=== PATIENT | female | born 1955 | race African-American/Black ===

== ENCOUNTER 2016-11-02 17:30 | Inpatient (IN) | payer MEDICARE ==
[~2016-11-02] VITALS: Ht 157.5 cm; Wt 61.0 kg
[2016-11-02] MEDS ORDERED: CALC1TAB PO (18:25)
[2016-11-02] MEDS ORDERED: EZET10TA3 PO (18:25)
[2016-11-02] MEDS ORDERED: MAGN71.52 PO (18:25)
[2016-11-02] MEDS ORDERED: LEVO500T38 PO (18:25)
[2016-11-02] MEDS ORDERED: LEVE500T56 PO (18:25)
[2016-11-02] MEDS ORDERED: SPIR100T PO (18:25)
[2016-11-02] MEDS ORDERED: RIFA550T PO (18:25)
[2016-11-02] MEDS ORDERED: DICL100G7 TP (18:25)
[2016-11-02] MEDS ORDERED: AMOX1TAB58 PO (18:25)
[2016-11-02] MEDS ORDERED: OMEP20TA63 PO (18:25)
[2016-11-02] MEDS ORDERED: OMEG1CAP38 PO (18:25)
[2016-11-02] MEDS ORDERED: MECL25TA3 PO (18:25)
[2016-11-02] MEDS ORDERED: LACT20SO PO (18:25)
[2016-11-02 18:45] VITALS: BP 115/54
[2016-11-02 18:53] VITALS: BP 115/54
[2016-11-02] MEDS ORDERED: FUROSEMIDE 40 MG/4 ML VIAL IVP ONE (19:30)
[2016-11-02 20:22] LABS: BASO % 1 % (0-3); EOS % 2 % (0-3); HEMOGLOBIN 10.4 g/dL (12.0-15.5); LYMPH # 1.4 x10^3/uL (1.0-4.8); LYMPH % 25 % (24-48); MEAN CORPUSCULAR HEMOGLOBIN 31 pg (25-35); MEAN CORPUSCULAR HGB CONC 33 g/dL (31-37); MEAN CORPUSCULAR VOLUME 94 fL (79-100); MONO % 16 % (0-9); NEUT % 57 % (31-73); PLATELET COUNT 71 x10^3/uL (140-400); RED CELL DISTRIBUTION WIDTH 18.3 % (11.5-14.5); WHITE BLOOD COUNT 5.7 x10^3/uL (4.0-11.0)
[2016-11-02 20:28] LABS: INR 2.4 (0.8-1.1)
[2016-11-02 20:30] LABS: ALBUMIN 1.2 g/dL (3.4-5.0); ALBUMIN/GLOBULIN RATIO 0.2 (1.0-1.7); CREATININE 1.2 mg/dL (0.6-1.0); GFR 55.1; MAGNESIUM 1.6 mg/dL (1.8-2.4); POTASSIUM 4.5 mmol/L (3.5-5.1); TOTAL BILIRUBIN 4.1 mg/dL (0.2-1.0); TOTAL PROTEIN 7.2 g/dL (6.4-8.2)
--- NOTE | 2016-11-02 21:38 | EKG ---
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
[2016-11-02] MEDS: LACTULOSE 20 GM/30 ML SOLUTION. PO SCH (21:48)
[2016-11-02] MEDS: RIFAXIMIN 550 MG TABLET PO SCH (21:49)
[2016-11-02] MEDS: LEVETIRACETAM 500 MG TABLET PO SCH (21:49)
[2016-11-02 22:19] LABS: BILIRUBIN,URINE MODERATE (NEG); GLUCOSE,URINE NEGATIVE (NEG); NITRITE,URINE NEGATIVE (NEG); PH,URINE 6.5; PROTEIN,URINE NEGATIVE (NEG-TRACE)
[2016-11-02 22:41] LABS: BACTERIA,URINE 0 /HPF (0-FEW); RBC,URINE 20-40 /HPF (0-2); SQUAMOUS EPITHELIAL CELL,UR MOD /LPF
[2016-11-02 23:00] VITALS: BP 121/71
[2016-11-03] VITALS (7 sets, daily range): BP systolic 86–112; BP diastolic 46–57
[2016-11-03 05:45] LABS: BASO % 1 % (0-3); EOS % 2 % (0-3); HEMATOCRIT 30.4 % (36.0-47.0); LYMPH # 1.5 x10^3/uL (1.0-4.8); LYMPH % 32 % (24-48); MEAN CORPUSCULAR HEMOGLOBIN 31 pg (25-35); MEAN CORPUSCULAR HGB CONC 33 g/dL (31-37); MEAN CORPUSCULAR VOLUME 94 fL (79-100); MONO % 15 % (0-9); NEUT % 51 % (31-73); PLATELET COUNT 65 x10^3/uL (140-400); RED BLOOD COUNT 3.22 x10^6/uL (3.50-5.40); RED CELL DISTRIBUTION WIDTH 17.4 % (11.5-14.5); WHITE BLOOD COUNT 4.6 x10^3/uL (4.0-11.0)
[2016-11-03 06:04] LABS: POTASSIUM 3.9 mmol/L (3.5-5.1)
--- NOTE | 2016-11-03 07:50 | RAD ---
Bilateral lower extremity venous ultrasound, 11/02/2016: History: Bilateral leg and feet swelling Duplex evaluation of the deep veins in the lower extremities was performed including grayscale, color-flow and spectral Doppler analysis. The femoral and popliteal veins demonstrate normal compressibility and normal responses to distal augmentation maneuvers. Color imaging of those vessels shows no evidence of intraluminal clot. The visualized deep veins in both calves are patent. There is considerable subcutaneous edema in both lower legs. IMPRESSION: There is no sonographic evidence of deep vein thrombosis in either lower extremity.
[2016-11-03] MEDS: LEVETIRACETAM 500 MG TABLET PO SCH ×2 (08:22→20:04)
[2016-11-03] MEDS: RIFAXIMIN 550 MG TABLET PO SCH ×2 (08:22→20:04)
[2016-11-03] MEDS: SPIRONOLACTONE 25 MG TABLET PO SCH (08:22)
[2016-11-03] MEDS: PANTOPRAZOLE 40 MG TABLET. PO SCH (08:22)
[2016-11-03] MEDS: LACTULOSE 20 GM/30 ML SOLUTION. PO SCH ×3 (08:22→20:04)
[2016-11-03] MEDS: EZETIMIBE 10 MG TABLET PO SCH (08:23)
[2016-11-03] MEDS: FUROSEMIDE 20 MG/2 ML VIAL IVP SCH ×2 (08:23→14:13)
--- NOTE | 2016-11-03 09:52 | RAD ---
Portable chest, 11/02/2016: History: Swollen feet, congestive heart failure No previous chest radiographs are available at this time for comparison purposes. The heart is at the upper limits of normal in size. There is a small left suprahilar opacity suggesting a mass versus focal infiltrate. There is mild streaky infiltrate in the left base partially obscuring the hemidiaphragm. The right lung is clear. No definite pleural fluid is seen. A bowel loop extends up beneath the hemidiaphragm in the right upper quadrant of the abdomen. IMPRESSION: 1. Left suprahilar mass versus focal pneumonitis. CT chest imaging is suggested for further evaluation. 2. Mild left basilar infiltrate suggesting pneumonia.
--- NOTE | 2016-11-03 10:01 | PDOC ---
Provider Note Provider Note Pt seen.H&P dictated. #[id number] AGUILA ALVA MD Nov 03, 2016 10:01
--- NOTE | 2016-11-03 10:18 | PDOC2 ---
GI CONSULT Reason For Consult: Cirrhosis HPI: HPI: 61 y/o AA female who has chief complaint of swelling in her feet. PMH is significant for alcoholic cirrhosis which is why GI was asked to see. She apparently stopped drinking for awhile but has resumed; she has she has a couple cans of beer a few days a week. At home, she takes Xifaxan, lactulose, and Aldactone. It's unclear if she's had previous paracentesis but was apparently on the transplant list for awhile. She describes some abdominal bloating which has improved. H/o GERD controlled w/ Prilosec at home. Lactulose causes loose stools. Denies abd pain and bleeding. Has lost some weight (about 15 pounds) recently w/ some decreased appetite. Recalls previous EGD and colonoscopy about 5 years ago which she says were normal except for reflux. Abd US is pending from yesterday. Labs significant for INR 2.4, Hgb 10 , plt 65, bili 4.1, AST 57, ALT 28, Alk Phos 125. Note mass vs pneumonitis or possible pneumonia on CXR. Has had recent "cold." Lasix added here. PMH: PMH: cirrhosis (alcohol), CVA, seizures, HTN, lung cancer, GERD, hysterectomy, arthritis, depression Social History: Smoke: 1 pack per day ALCOHOL: heavy Drugs: None ROS: GEN: Denies fevers, chills, sweats HEENT: Denies blurred vision, sore throat CV: Denies chest pain RESP: Denies shortness of air, cough GI: Per HPI : Denies hematuria, dysuria ENDO: weight loss NEURO: Denies confusion, dizziness MSK: feet swelling and pain SKIN: Denies jaundice, pruritus VItals: Vitals: Vital Signs Date Time Temp Pulse Resp B/P Pulse Ox O2 Delivery O2 Flow Rate FiO2 11/03/16 08:00 Room Air 11/03/16 07:00 90/46 11/03/16 07:00 97.7 67 19 99 97.7 Labs: Labs: Laboratory Tests Test 11/02/16 20:05 11/02/16 22:00 11/03/16 04:40 White Blood Count 5.7x10^3/uL (4.0-11.0) 4.6x10^3/uL (4.0-11.0) Red Blood Count 3.40x10^6/uL (3.50-5.40) 3.22x10^6/uL (3.50-5.40) Hemoglobin 10.4g/dL (12.0-15.5) 10.0g/dL (12.0-15.5) Hematocrit 32.0% (36.0-47.0) 30.4% (36.0-47.0) Mean Corpuscular Volume 94fL (79-100) 94fL (79-100) Mean Corpuscular Hemoglobin 31pg (25-35) 31pg (25-35) Mean Corpuscular Hemoglobin Concent 33g/dL (31-37) 33g/dL (31-37) Red Cell Distribution Width 18.3% (11.5-14.5) 17.4% (11.5-14.5) Platelet Count 71x10^3/uL (140-400) 65x10^3/uL (140-400) Neutrophils (%) (Auto) 57% (31-73) 51% (31-73) Lymphocytes (%) (Auto) 25% (24-48) 32% (24-48) Monocytes (%) (Auto) 16% (0-9) 15% (0-9) Eosinophils (%) (Auto) 2% (0-3) 2% (0-3) Basophils (%) (Auto) 1% (0-3) 1% (0-3) Neutrophils # (Auto) 3.2x10^3uL (1.8-7.7) 2.3x10^3uL (1.8-7.7) Lymphocytes # (Auto) 1.4x10^3/uL (1.0-4.8) 1.5x10^3/uL (1.0-4.8) Monocytes # (Auto) 0.9x10^3/uL (0.0-1.1) 0.7x10^3/uL (0.0-1.1) Eosinophils # (Auto) 0.1x10^3/uL (0.0-0.7) 0.1x10^3/uL (0.0-0.7) Basophils # (Auto) 0.0x10^3/uL (0.0-0.2) 0.0x10^3/uL (0.0-0.2) Prothrombin Time 25.0SEC (11.7-14.0) Prothromb Time International Ratio 2.4 (0.8-1.1) Sodium Level 137mmol/L (136-145) 136mmol/L (136-145) Potassium Level 4.5mmol/L (3.5-5.1) 3.9mmol/L (3.5-5.1) Chloride Level 108mmol/L (98-107) 106mmol/L (98-107) Carbon Dioxide Level 26mmol/L (21-32) 26mmol/L (21-32) Anion Gap 3 (6-14) 4 (6-14) Blood Urea Nitrogen 12mg/dL (7-20) 11mg/dL (7-20) Creatinine 1.2mg/dL (0.6-1.0) 1.0mg/dL (0.6-1.0) Estimated GFR (Cockcroft-Gault) 55.1 68.0 BUN/Creatinine Ratio 10 (6-20) Glucose Level 103mg/dL (70-99) 73mg/dL (70-99) Calcium Level 8.0mg/dL (8.5-10.1) 8.0mg/dL (8.5-10.1) Magnesium Level 1.6mg/dL (1.8-2.4) Total Bilirubin 4.1mg/dL (0.2-1.0) Aspartate Amino Transf (AST/SGOT) 57U/L (15-37) Alanine Aminotransferase (ALT/SGPT) 28U/L (14-59) Alkaline Phosphatase 125U/L (46-116) Ammonia 30mcmol/L (11-34) Total Protein 7.2g/dL (6.4-8.2) Albumin 1.2g/dL (3.4-5.0) Albumin/Globulin Ratio 0.2 (1.0-1.7) Thyroid Stimulating Hormone (TSH) 5.165uIU/mL (0.358-3.74) Urine Collection Type Unknown Urine Color [place] Urine Clarity Clear Urine pH 6.5 Urine Specific [place] 1.025 Urine Protein Negativemg/dL (NEG-TRACE) Urine Glucose (UA) Negativemg/dL (NEG) Urine Ketones (Stick) Negativemg/dL (NEG) Urine Blood Small (NEG) Urine Nitrite Negative (NEG) Urine Bilirubin Moderate (NEG) Urine Urobilinogen Dipstick 2.0mg/dL (0.2 mg/dL) Urine Leukocyte Esterase Trace (NEG) Urine RBC 20-40/HPF (0-2) Urine WBC 1-4/HPF (0-4) Urine Squamous Epithelial Cells Mod/LPF Urine Bacteria 0/HPF (0-FEW) Urine Hyaline Casts Moderate/HPF Urine Mucus Mod/LPF Allergies: Coded Allergies: adhesive tape (Verified Adverse Reaction, Intermediate, 11/02/16) Medications: Current Medications Medications (Trade) Dose Ordered Sig/Kassi Route PRN Reason Start Time Stop Time Status Last Admin Dose Admin EZETIMIBE (Zetia) 10 mg DAILY PO 11/03/16 09:00 11/03/16 08:23 Levetiracetam (Keppra) 500 mg BID PO 11/02/16 21:00 11/03/16 08:22 Rifaximin (Xifaxan) 550 mg BID PO 11/02/16 21:00 11/03/16 08:22 Lactulose 20 gm TID PO 11/02/16 21:00 11/03/16 08:22 Pantoprazole Sodium (Protonix) 40 mg DAILYAC PO 11/03/16 07:30 11/03/16 08:22 Spironolactone (Aldactone) 100 mg DAILY PO 11/03/16 09:00 11/03/16 08:22 Furosemide (Lasix) 20 mg BID92 IVP 11/03/16 09:00 11/03/16 08:23 Furosemide (Lasix) 40 mg 1X ONCE IVP 11/02/16 19:30 11/02/16 19:32 DC 11/02/16 21:50 Imaging: Imaging: CXR 11/02/16 IMPRESSION: 1. Left suprahilar mass versus focal pneumonitis. CT chest imaging is suggested for further evaluation. 2. Mild left basilar infiltrate suggesting pneumonia. LE Ultrasound 11/02/16 IMPRESSION: There is no sonographic evidence of deep vein thrombosis in either lower extremity. PE: GEN: NAD HEENT: Atraumatic, PERRL LUNGS: decreased bilaterally HEART: RRR ABD: NABS, S/NT, perhaps mildly distended EXTREMITY: BLE edema SKIN: No rashes, no jaundice NEURO/PSYCH: A & O 3 A/P: A/P: Alcoholic cirrhosis -history of, has started drinking again -on Aldactone, Xifaxan, lactulose at home - Lasix added here BLE edema Abnormal CXR -as above GERD -controlled w/ PPI, recalls previous EGD Weight loss, anorexia CRC screen -reports previously normal colonoscopy -- Continue current, await US results. DIANA SANCHEZ Nov 03, 2016 10:18
[2016-11-03] MEDS ORDERED: MAGNESIUM SULFATE 2GM 50 ML IV ONE (10:30)
--- NOTE | 2016-11-03 10:35 | RAD ---
Abdominal ultrasound, 11/02/2016: History: Ascites, liver failure There is a moderate volume of ascites. The hepatic margins are irregular compatible with cirrhosis. No hepatic mass is seen. There is hepatofugal blood flow in the portal vein. There is considerable thickening of the gallbladder wall. The gallbladder contains echogenic structures with posterior acoustic shadowing compatible with cholelithiasis. The visualized portions of the pancreas are unremarkable. The spleen measures 11 cm in length. No renal abnormality is detected. There is aortic atherosclerosis. The distal abdominal aorta was obscured by overlying bowel. The visualized portions of the inferior vena cava are unremarkable. IMPRESSION: 1. Hepatic cirrhosis with hepatofugal flow in the portal vein compatible with portal hypertension. 2. Moderate volume of ascites. 3. Cholelithiasis with considerable gallbladder wall thickening. The gallbladder wall thickening may be due to the liver disease or cholecystitis.
--- NOTE | 2016-11-03 12:46 | PDOC ---
Provider Note Provider Note dictated BRIELLE MABRY MD Nov 03, 2016 12:46
--- NOTE | 2016-11-03 13:46 | RAD ---
Indication abnormal plain film examination of the chest. Suspect mass left lung. Noncontrast images through the chest were obtained. No prior CT imaging of the chest is available. Note is made of a plain film examination and the accompanying report of the chest one day earlier. Imaging through the upper abdomen demonstrate some ascites. The liver is slightly shrunken and has a slightly irregular border contour. The spleen is normal in size. The appearance of the liver is suggestive of cirrhosis. Clinical correlation advised. Cholelithiasis is noted An acute finding in the upper abdomen is not seen. There is a soft tissue parenchymal mass in the left upper lobe measuring approximately 3 cm in greatest dimension. It abuts the hilum and left pulmonary artery. Primary malignancy is the leading consideration. Pneumonia is felt unlikely. Scarring would be a remote possibility. Biopsy or PET scan imaging should be considered. There is likely mild left hilar adenopathy. There is some slight volume loss in the left lower lobe compatible with atelectasis or pneumonia. The right lung is clear. There is a minute amount of left pleural fluid. IMPRESSION: 3 cm soft tissue mass in the left upper lobe. Primary malignancy is leading consideration. There is likely mild left hilar adenopathy. Liver appearance most consistent with a cirrhotic liver. Cholelithiasis. Abdominal ascites PQRS Compliance Statement: One or more of the following individualized dose reduction techniques were utilized for this examination: 1. Automated exposure control 2. Adjustment of the mA and/or kV according to patient size 3. Use of iterative reconstruction technique
--- NOTE | 2016-11-03 14:39 | HP ---
ADMIT DATE: 11/02/2016 LOCATION: 528. REASON FOR ADMISSION TO THE HOSPITAL: Cirrhosis of the liver secondary to alcoholic liver disease, decompensation. HISTORY OF PRESENT ILLNESS: The patient is a 61-year-old female patient, history of alcoholic liver disease, has been to , in the kidney transplant waiting list. She has history of alcohol problem and she also has been drinking over holidays and also smoking. She gained 17 pounds and swelling, 2+3+ edema lower extremities, abdominal distention, was admitted with anasarca from cirrhosis of the liver, was admitted for aggressive diuresis. PAST MEDICAL HISTORY: She has a history of COPD, lung cancer, radiation treatment, cirrhosis of the liver, had EGD, colonoscopy, paracentesis in the past, anxiety, depression. PAST SURGICAL HISTORY: As mentioned above, had EGD, colonoscopy, paracentesis, and she is on the transplant list. She also had radiation for lung cancer, being followed by Oncology. ALLERGIES: TAPE. MEDICATIONS: She is on Zetia 10 mg daily, lactulose 3 times daily, Keppra 500 mg twice a day for seizures, omeprazole 20 mg daily, Xifaxan 550 mg twice a day, spironolactone 100 mg daily. Taking vitamin D, magnesium, meclizine, fish oil. PERSONAL HISTORY: Smokes 1 pack. She is drinking lately more than usual. She stopped for 2 years, then it came back. She has drunk for 30 years. FAMILY HISTORY: Unremarkable. SOCIAL HISTORY: Lives with her . REVIEW OF SYSTEMS: CARDIAC: No chest pain. LUNGS: No cough. GASTROINTESTINAL: Some abdominal distention. EXTREMITIES: Swelling of lower extremities and weak. PHYSICAL EXAMINATION: VITAL SIGNS: At the time of admission show temperature 97, pulse 57, respirations 19, blood pressure 115/54, 100% on room air. HEENT: Head is atraumatic. Pupils, no jaundice. Oral cavity, teeth present. NECK: Supple. Thyroid not enlarged. JVD not elevated. CHEST: Symmetrical. CARDIOVASCULAR: S1, S2. LUNGS: Clear to auscultation. Few crackles. ABDOMEN: Distended with fluid, soft. No mass palpable. EXTERNAL GENITALIA: No Almanzar. RECTAL: Deferred. EXTREMITIES: 3+ edema, 2+ of the thighs, 3+ at the feet. SKIN: No skin breakdown. NEUROLOGIC: No asterixis. Moving upper and lower extremities, slightly weak. LABORATORY DATA: Shows a white count of 5.7, hemoglobin 10.4, platelets 71. Electrolytes show sodium 137, potassium 4.5, chloride 108, bicarb 26, BUN 12, creatinine 1.1, glucose 103, magnesium 1.6, bilirubin 4.1, AST 57, ALT 28. Ammonia 30. Albumin 1.2. TSH 5.1. INR was 2.4. Urine: WBC 1-4, negative for nitrites, negative for leukocyte esterase. Chest x-ray: Left suprahilar mass, has history lung cancer. Ultrasound of the lower extremities, no evidence of DVT. FINAL IMPRESSION: 1. Anasarca, acute on chronic liver failure. 2. Cirrhosis of the liver. 3. Alcoholic liver disease. 4. History of lung cancer. 5. Low albumin and low magnesium. 6. Relapse with smoking and drinking. PLAN: At this time, admit to hospital, aggressive diuresis. We will have GI consultation, also have pulmonary consult because of infiltrates in the lung and see how the patient improves. Prognosis is guarded. Again, stressed the importance of staying away from alcohol and smoking. AGUILA ALVA MD DR: MELLY/kar JOB#: [id number] / [id number]
[2016-11-04] VITALS (9 sets, daily range): BP systolic 88–100; BP diastolic 42–65
[2016-11-04 05:11] LABS: CALCIUM 8.1 mg/dL (8.5-10.1); CREATININE 1.1 mg/dL (0.6-1.0); GFR 60.9; MAGNESIUM 1.5 mg/dL (1.8-2.4); POTASSIUM 3.6 mmol/L (3.5-5.1)
[2016-11-04] MEDS: LEVETIRACETAM 500 MG TABLET PO SCH ×2 (08:39→20:42)
[2016-11-04] MEDS: EZETIMIBE 10 MG TABLET PO SCH (08:39)
[2016-11-04] MEDS: SPIRONOLACTONE 25 MG TABLET PO SCH (08:39)
[2016-11-04] MEDS: RIFAXIMIN 550 MG TABLET PO SCH ×2 (08:39→20:42)
[2016-11-04] MEDS: PANTOPRAZOLE 40 MG TABLET. PO SCH (08:39)
[2016-11-04] MEDS: LACTULOSE 20 GM/30 ML SOLUTION. PO SCH ×3 (08:39→20:42)
[2016-11-04] MEDS: FUROSEMIDE 20 MG/2 ML VIAL IVP SCH ×3 (08:40→14:18)
--- NOTE | 2016-11-04 09:04 | PDOC ---
DAVID WISDOM SOLID WASTE MANAGER 11/04/16 0904: IM PROGRESS NOTES- Subjective Subjective doing okay, pain in bilateral feet Objective Objective no distress Vitals Vital Signs Date Time Temp Pulse Resp B/P Pulse Ox O2 Delivery O2 Flow Rate FiO2 11/04/16 07:49 Room Air 11/04/16 04:00 94/42 11/04/16 03:00 98.2 69 18 91 98.2 Input & Output Intake and Output 11/04/16 07:00 Intake Total 1740 ml Output Total 1600 ml Balance 140 ml Intake Oral 1740 ml Output Urine Total 1600 ml # Bowel Movements 1 Physical Exam Physical Exam General appearance - alert, chronically ill appearing, and in no distress Mental Status - alert, oriented to person, place, and time, affect appropriate to mood Head - normal Chest - clear to auscultation, no wheezes, rales or rhonchi Heart - S1 and S2 normal Abdomen - soft, nontender, +ascites, BS+ Neurological - no acute focal neurological deficit noted Musculoskeletal - no muscular tenderness noted Extremities - no pedal edema Skin - warm and dry Labs Laboratory Tests Test 11/02/16 20:05 11/02/16 22:00 11/03/16 04:40 11/04/16 03:36 White Blood Count 5.7x10^3/uL (4.0-11.0) 4.6x10^3/uL (4.0-11.0) Red Blood Count 3.40x10^6/uL (3.50-5.40) 3.22x10^6/uL (3.50-5.40) Hemoglobin 10.4g/dL (12.0-15.5) 10.0g/dL (12.0-15.5) Hematocrit 32.0% (36.0-47.0) 30.4% (36.0-47.0) Mean Corpuscular Volume 94fL (79-100) 94fL (79-100) Mean Corpuscular Hemoglobin 31pg (25-35) 31pg (25-35) Mean Corpuscular Hemoglobin Concent 33g/dL (31-37) 33g/dL (31-37) Red Cell Distribution Width 18.3% (11.5-14.5) 17.4% (11.5-14.5) Platelet Count 71x10^3/uL (140-400) 65x10^3/uL (140-400) Neutrophils (%) (Auto) 57% (31-73) 51% (31-73) Lymphocytes (%) (Auto) 25% (24-48) 32% (24-48) Monocytes (%) (Auto) 16% (0-9) 15% (0-9) Eosinophils (%) (Auto) 2% (0-3) 2% (0-3) Basophils (%) (Auto) 1% (0-3) 1% (0-3) Neutrophils # (Auto) 3.2x10^3uL (1.8-7.7) 2.3x10^3uL (1.8-7.7) Lymphocytes # (Auto) 1.4x10^3/uL (1.0-4.8) 1.5x10^3/uL (1.0-4.8) Monocytes # (Auto) 0.9x10^3/uL (0.0-1.1) 0.7x10^3/uL (0.0-1.1) Eosinophils # (Auto) 0.1x10^3/uL (0.0-0.7) 0.1x10^3/uL (0.0-0.7) Basophils # (Auto) 0.0x10^3/uL (0.0-0.2) 0.0x10^3/uL (0.0-0.2) Prothrombin Time 25.0SEC (11.7-14.0) Prothromb Time International Ratio 2.4 (0.8-1.1) Sodium Level 137mmol/L (136-145) 136mmol/L (136-145) 138mmol/L (136-145) Potassium Level 4.5mmol/L (3.5-5.1) 3.9mmol/L (3.5-5.1) 3.6mmol/L (3.5-5.1) Chloride Level 108mmol/L (98-107) 106mmol/L (98-107) 106mmol/L (98-107) Carbon Dioxide Level 26mmol/L (21-32) 26mmol/L (21-32) 28mmol/L (21-32) Anion Gap 3 (6-14) 4 (6-14) 4 (6-14) Blood Urea Nitrogen 12mg/dL (7-20) 11mg/dL (7-20) 14mg/dL (7-20) Creatinine 1.2mg/dL (0.6-1.0) 1.0mg/dL (0.6-1.0) 1.1mg/dL (0.6-1.0) Estimated GFR (Cockcroft-Gault) 55.1 68.0 60.9 BUN/Creatinine Ratio 10 (6-20) Glucose Level 103mg/dL (70-99) 73mg/dL (70-99) 99mg/dL (70-99) Calcium Level 8.0mg/dL (8.5-10.1) 8.0mg/dL (8.5-10.1) 8.1mg/dL (8.5-10.1) Magnesium Level 1.6mg/dL (1.8-2.4) 1.5mg/dL (1.8-2.4) Total Bilirubin 4.1mg/dL (0.2-1.0) Aspartate Amino Transf (AST/SGOT) 57U/L (15-37) Alanine Aminotransferase (ALT/SGPT) 28U/L (14-59) Alkaline Phosphatase 125U/L (46-116) Ammonia 30mcmol/L (11-34) Total Protein 7.2g/dL (6.4-8.2) Albumin 1.2g/dL (3.4-5.0) Albumin/Globulin Ratio 0.2 (1.0-1.7) Thyroid Stimulating Hormone (TSH) 5.165uIU/mL (0.358-3.74) Urine Collection Type Unknown Urine Color [place] Urine Clarity Clear Urine pH 6.5 Urine Specific [place] 1.025 Urine Protein Negativemg/dL (NEG-TRACE) Urine Glucose (UA) Negativemg/dL (NEG) Urine Ketones (Stick) Negativemg/dL (NEG) Urine Blood Small (NEG) Urine Nitrite Negative (NEG) Urine Bilirubin Moderate (NEG) Urine Urobilinogen Dipstick 2.0mg/dL (0.2 mg/dL) Urine Leukocyte Esterase Trace (NEG) Urine RBC 20-40/HPF (0-2) Urine WBC 1-4/HPF (0-4) Urine Squamous Epithelial Cells Mod/LPF Urine Bacteria 0/HPF (0-FEW) Urine Hyaline Casts Moderate/HPF Urine Mucus Mod/LPF Laboratory Tests Test 11/04/16 03:36 Sodium Level 138mmol/L (136-145) Potassium Level 3.6mmol/L (3.5-5.1) Chloride Level 106mmol/L (98-107) Carbon Dioxide Level 28mmol/L (21-32) Anion Gap 4 (6-14) Blood Urea Nitrogen 14mg/dL (7-20) Creatinine 1.1mg/dL (0.6-1.0) Estimated GFR (Cockcroft-Gault) 60.9 Glucose Level 99mg/dL (70-99) Calcium Level 8.1mg/dL (8.5-10.1) Magnesium Level 1.5mg/dL (1.8-2.4) Meds Current Medications EZETIMIBE (Zetia) 10 mg DAILY PO Last administered on 11/04/16 08:39; Start at 09:00 Furosemide 20 mg 20 mg BID92 IVP Last administered on 11/04/16 08:40; Start at 09:00 Magnesium Sulfate/ Dextrose (Magnesium Sulfate PREMIX 2GM) 50 ml @ 25 mls/hr 1X ONCE IV Last administered on 11/03/16 10:59; Start 11/03/16 at 10:30; Stop 11/03/16 at 12:29; Status DC Spironolactone (Aldactone) 100 mg DAILY PO Last administered on 11/04/16 08:39 ; Start 11/03/16 at 09:00 Assessment Assessment FINAL IMPRESSION: 1. Anasarca, acute on chronic liver failure. 2. Cirrhosis of the liver. 3. Alcoholic liver disease. 4. History of lung cancer. 5. Low albumin and low magnesium. 6. Relapse with smoking and drinking. IMPRESSION: anasarca secondary to cirrhosis liver daily weight not accurate Lasix 20mg IV Bid 2day I/O edema improved cirrhosis liver secondary to ETOH INR 2.4 on admission Platelet Admit 71 11/04 65 hepatic cirrhosis +portal HTN abnormal CT chest 3cm soft tissue mass JIMMY with mild L hilar adenopathy, highly suspicious for malignancy pulmonary consulted cholecystitis gallstone +GB wall thickening, not acute. monitor for symptoms anemia CD Admit Hgb 10.4 11/04 10.0 CKD II Admit BUN 12 11/04 14 Cr 1.2 1.1 K 4.5 3.6 Mg 1.6 1.5 OTC mg replacement home meds start Mag Ox 400mg BID and recheck AM 11/05 DVT/GI prophylaxis tubigrip OOB chair/ambulate PPI Plan Plan For more details regarding further plans, please refer to the orders. LIBBY KINNEY MD 11/04/16 1058: IM PROGRESS NOTES- Assessment Assessment Hypomagnesemia- IV MAg 4 gm Hypokalemia replace. Give IV Lasix X1. Discharge tomorrow. still has edema of legs but improving. The patient was seen and examined by me. Chart reviewed and plan of care formulated. Discussed with, reviewed and agree with SQL SERVER DBA DEVELOPER's notes, plan of care and orders with modifications as necessary. For more details regarding further plans, please refer to the orders. DAVID WISDOM APRN Nov 04, 2016 09:04 LIBBY KINNEY MD Nov 04, 2016 10:58
--- NOTE | 2016-11-04 09:08 | CONS ---
DATE OF CONSULTATION: 11/03/2016 ATTENDING PHYSICIAN: Dr. Chin. REASON FOR CONSULTATION: Lung mass. HISTORY OF PRESENT ILLNESS: The patient is a 61-year-old female with history of alcoholic cirrhosis. She has a history of tobacco use for 25-30 years; however, she said she smoked minimally with 1 pack lasting a week, now down to 1-2 cigarettes a day. The patient was hospitalized because of significant lower extremity edema and anasarca. I have been asked to see her for further evaluation of abnormal chest x-ray. The patient's chest x-ray was reviewed dated today. She had a left suprahilar mass. The patient had some left basilar infiltrate as well. She was told that she had lung mass consistent with cancer about 6-8 months ago. However, she declined to have the biopsy and she received radiation treatment. I do not have any old x-ray available at this hospital for comparison. She states she was told that the tumor was stable. She has lost weight, but she is unable to know exact pounds. No cough, no hemoptysis. No chest pains. No nausea, vomiting. Consultation requested for further evaluation and management. PAST MEDICAL HISTORY: Alcoholic cirrhosis, history of CVA, seizures, hypertension, history of lung cancer, but not formally diagnosed, but treated with radiation. She refused the biopsy. History of GERD. PAST SURGICAL HISTORY: Hysterectomy. SOCIAL HISTORY: Smoked for about 25-30 years, 1 pack would last a week. ALLERGIES: ADHESIVE TAPE. MEDICATIONS: Reviewed as listed in the MRAD. REVIEW OF SYSTEMS: Twelve-point systems obtained, pertinent positives discussed in history of present illness, otherwise noncontributory. All systems that were negative were reviewed as well. PHYSICAL EXAMINATION: VITAL SIGNS: Blood pressure 98/52, afebrile, pulse ox 99% on room air. NECK: Supple. LUNGS: Diminished breath sounds. CARDIOVASCULAR: Regular rate and rhythm. ABDOMEN: Soft, distended, nontender. EXTREMITIES: With 3+ pitting edema bilaterally. LABORATORY DATA: Reviewed. White cell count 4.6, hemoglobin 10.0, platelets 65. INR is 2.4. BUN is 11, creatinine is 1.0. TSH 5.16. IMPRESSION: 1. Left upper lobe mass. It was apparently diagnosed 6-8 months ago. At that time, per patient history she declined to have any biopsy and was treated empirically with radiation treatment. I do not have any old x-ray available for comparison and no old records . In the meantime, I will do a CT chest to better assess the size of the mass. 2. History of tobaccoism, suspect underlying chronic obstructive pulmonary disease. 3. 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 4. 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 5. Severe protein-calorie malnutrition with an albumin level of 1.2. RECOMMENDATIONS: 1. We will obtain noncontrast CT chest for further evaluation of the mass. 2. We will obtain reports of old CAT scan or chest x-ray to make comparisons if the mass is increased or has remained the same. she may have used another name before. 3. Follow GI recommendation regarding cirrhosis. 4. Hematology recommendation regarding coagulopathy. 5. Diuresis as ordered. 6. Discussed with the patient's daughter. We will follow along with you. BRIELLE MABRY MD DR: EZRA/kar JOB#: [id number] / [id number] DAVE
[2016-11-04] MEDS ORDERED: MAGNESIUM SULFATE 4GM 100 ML IV ONE (10:00)
[2016-11-04] MEDS ORDERED: POTASSIUM CHLORIDE 20 MEQ TABLET.ER. PO ONE (10:00)
[2016-11-04] MEDS: MAGNESIUM OXIDE 400 MG TABLET PO SCH ×2 (10:08→20:42)
[2016-11-04] MEDS ORDERED: FUROSEMIDE 20 MG/2 ML VIAL IVP ONE (11:00)
--- NOTE | 2016-11-04 11:06 | PDOC ---
Subjective: Subjective: Feeling a little better. Feet swollen/painful but better. No GI complaints. Objective: Objective: Per RN - Erin held this a.m. due to low BP, edema better. Vital Signs: Vital Signs Date Time Temp Pulse Resp B/P Pulse Ox O2 Delivery O2 Flow Rate FiO2 11/04/16 08:40 65 88/46 11/04/16 07:49 Room Air 11/04/16 07:00 98.4 19 95 98.4 Labs: Laboratory Tests Test 11/04/16 03:36 Sodium Level 138mmol/L Potassium Level 3.6mmol/L Chloride Level 106mmol/L Carbon Dioxide Level 28mmol/L Anion Gap 4 Blood Urea Nitrogen 14mg/dL Creatinine 1.1mg/dL Estimated GFR (Cockcroft-Gault) 60.9 Glucose Level 99mg/dL Calcium Level 8.1mg/dL Magnesium Level 1.5mg/dL Imaging: Abd US IMPRESSION: 1. Hepatic cirrhosis with hepatofugal flow in the portal vein compatible with portal hypertension. 2. Moderate volume of ascites. 3. Cholelithiasis with considerable gallbladder wall thickening. The gallbladder wall thickening may be due to the liver disease or cholecystitis. Chest CT IMPRESSION: 3 cm soft tissue mass in the left upper lobe. Primary malignancy is leading consideration. There is likely mild left hilar adenopathy. Liver appearance most consistent with a cirrhotic liver. Cholelithiasis. Abdominal ascites PE: GEN: NAD, up to chair LUNGS: CTAB HEART: RRR ABD: some distention/ascites, non-tender EXTREMITY: BLE edema - w/ stockings NEURO/PSYCH: A & O 3 A/P: Alcoholic cirrhosis, ascites, portal hypertension -on Aldactone, Xifaxan, lactulose, Lasix BLE edema - some improvement JIMMY mass -pulm following Cholelithiasis, ?cholecystitis -on US as above -seems asymptomatic, possibly due to cirrhosis -- Will review w/ Dr. Guardado. DIANA SANCHEZ Nov 04, 2016 11:06
--- NOTE | 2016-11-04 12:20 | PDOC ---
PULMONARY PROGRESS NOTES Subjective no soa Vitals Vital Signs Date Time Temp Pulse Resp B/P Pulse Ox O2 Delivery O2 Flow Rate FiO2 11/04/16 11:15 97.7 57 19 99/63 99 Room Air 97.7 General: Alert, No acute distress Lungs: Clear Cardiovascular: S1 Abdomen: Soft, Non-tender Neuro Exam: Alert Extremities: Other (2+edema) Skin: Warm Labs Laboratory Tests Test 11/02/16 20:05 11/02/16 22:00 11/03/16 04:40 11/04/16 03:36 White Blood Count 5.7x10^3/uL (4.0-11.0) 4.6x10^3/uL (4.0-11.0) Red Blood Count 3.40x10^6/uL (3.50-5.40) 3.22x10^6/uL (3.50-5.40) Hemoglobin 10.4g/dL (12.0-15.5) 10.0g/dL (12.0-15.5) Hematocrit 32.0% (36.0-47.0) 30.4% (36.0-47.0) Mean Corpuscular Volume 94fL (79-100) 94fL (79-100) Mean Corpuscular Hemoglobin 31pg (25-35) 31pg (25-35) Mean Corpuscular Hemoglobin Concent 33g/dL (31-37) 33g/dL (31-37) Red Cell Distribution Width 18.3% (11.5-14.5) 17.4% (11.5-14.5) Platelet Count 71x10^3/uL (140-400) 65x10^3/uL (140-400) Neutrophils (%) (Auto) 57% (31-73) 51% (31-73) Lymphocytes (%) (Auto) 25% (24-48) 32% (24-48) Monocytes (%) (Auto) 16% (0-9) 15% (0-9) Eosinophils (%) (Auto) 2% (0-3) 2% (0-3) Basophils (%) (Auto) 1% (0-3) 1% (0-3) Neutrophils # (Auto) 3.2x10^3uL (1.8-7.7) 2.3x10^3uL (1.8-7.7) Lymphocytes # (Auto) 1.4x10^3/uL (1.0-4.8) 1.5x10^3/uL (1.0-4.8) Monocytes # (Auto) 0.9x10^3/uL (0.0-1.1) 0.7x10^3/uL (0.0-1.1) Eosinophils # (Auto) 0.1x10^3/uL (0.0-0.7) 0.1x10^3/uL (0.0-0.7) Basophils # (Auto) 0.0x10^3/uL (0.0-0.2) 0.0x10^3/uL (0.0-0.2) Prothrombin Time 25.0SEC (11.7-14.0) Prothromb Time International Ratio 2.4 (0.8-1.1) Sodium Level 137mmol/L (136-145) 136mmol/L (136-145) 138mmol/L (136-145) Potassium Level 4.5mmol/L (3.5-5.1) 3.9mmol/L (3.5-5.1) 3.6mmol/L (3.5-5.1) Chloride Level 108mmol/L (98-107) 106mmol/L (98-107) 106mmol/L (98-107) Carbon Dioxide Level 26mmol/L (21-32) 26mmol/L (21-32) 28mmol/L (21-32) Anion Gap 3 (6-14) 4 (6-14) 4 (6-14) Blood Urea Nitrogen 12mg/dL (7-20) 11mg/dL (7-20) 14mg/dL (7-20) Creatinine 1.2mg/dL (0.6-1.0) 1.0mg/dL (0.6-1.0) 1.1mg/dL (0.6-1.0) Estimated GFR (Cockcroft-Gault) 55.1 68.0 60.9 BUN/Creatinine Ratio 10 (6-20) Glucose Level 103mg/dL (70-99) 73mg/dL (70-99) 99mg/dL (70-99) Calcium Level 8.0mg/dL (8.5-10.1) 8.0mg/dL (8.5-10.1) 8.1mg/dL (8.5-10.1) Magnesium Level 1.6mg/dL (1.8-2.4) 1.5mg/dL (1.8-2.4) Total Bilirubin 4.1mg/dL (0.2-1.0) Aspartate Amino Transf (AST/SGOT) 57U/L (15-37) Alanine Aminotransferase (ALT/SGPT) 28U/L (14-59) Alkaline Phosphatase 125U/L (46-116) Ammonia 30mcmol/L (11-34) Total Protein 7.2g/dL (6.4-8.2) Albumin 1.2g/dL (3.4-5.0) Albumin/Globulin Ratio 0.2 (1.0-1.7) Thyroid Stimulating Hormone (TSH) 5.165uIU/mL (0.358-3.74) Urine Collection Type Unknown Urine Color Hartley Urine Clarity Clear Urine pH 6.5 Urine Specific Davis 1.025 Urine Protein Negativemg/dL (NEG-TRACE) Urine Glucose (UA) Negativemg/dL (NEG) Urine Ketones (Stick) Negativemg/dL (NEG) Urine Blood Small (NEG) Urine Nitrite Negative (NEG) Urine Bilirubin Moderate (NEG) Urine Urobilinogen Dipstick 2.0mg/dL (0.2 mg/dL) Urine Leukocyte Esterase Trace (NEG) Urine RBC 20-40/HPF (0-2) Urine WBC 1-4/HPF (0-4) Urine Squamous Epithelial Cells Mod/LPF Urine Bacteria 0/HPF (0-FEW) Urine Hyaline Casts Moderate/HPF Urine Mucus Mod/LPF Laboratory Tests Test 11/04/16 03:36 Sodium Level 138mmol/L (136-145) Potassium Level 3.6mmol/L (3.5-5.1) Chloride Level 106mmol/L (98-107) Carbon Dioxide Level 28mmol/L (21-32) Anion Gap 4 (6-14) Blood Urea Nitrogen 14mg/dL (7-20) Creatinine 1.1mg/dL (0.6-1.0) Estimated GFR (Cockcroft-Gault) 60.9 Glucose Level 99mg/dL (70-99) Calcium Level 8.1mg/dL (8.5-10.1) Magnesium Level 1.5mg/dL (1.8-2.4) Medications Active Scripts Medications Dose Route/Sig Days Date Category Augmentin 500-125 Tablet (Amoxicillin/Potassium Clav) 1 Each Tablet 1 Tab PO BID 11/02/16 Reported Aldactone (Spironolactone) 100 Mg Tablet 100 Mg PO DAILY 11/02/16 Reported Voltaren (Diclofenac Sodium) 100 Gm Gel..gram. 1 Gm TP QID 11/02/16 Reported Lactulose 20 Gm/30 Ml Solution 20 Gm PO TID 11/02/16 Reported Zetia (Ezetimibe) 10 Mg Tablet 10 Mg PO DAILY 11/02/16 Reported Levaquin (Levofloxacin) 500 Mg Tablet 500 Mg PO DAILY 11/02/16 Reported Meclizine Hcl 25 Mg Tablet 25 Mg PO PRN DAILY PRN 11/02/16 Reported Keppra (Levetiracetam) 500 Mg Tablet 500 Mg PO BID 11/02/16 Reported Xifaxan (Rifaximin) 550 Mg Tablet 550 Mg PO BID 11/02/16 Reported Caltrate 600 + D Tablet (Calcium Carbonate/Vitamin D3) 1 Each Tablet 1 Each PO BID 11/02/16 Reported Nu-Mag (Magnesium Chloride) 71.5 Mg Tablet. 128 Mg PO DAILY 11/02/16 Reported Prilosec Otc (Omeprazole Magnesium) 20 Mg Tablet. 20 Mg PO DAILY 11/02/16 Reported [place] 3 Fish Oil Softgel ([place]-3 Fatty Acids/Fish Oil) 1 Each Capsule. 1 Each PO DAILY 11/02/16 Reported Impression . 1. Known Left upper lobe mass. Patient says that she declined to have any biopsy and was treated empirically with radiation. 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 . I was able to find old ct chest from 09/01 for comparison under ishaan and hood abrams .It has grown from 2.5 cm to 3.0 cm 2. History of tobaccoism, suspect underlying chronic obstructive pulmonary disease. 3. 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 4. 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 5. Severe protein-calorie malnutrition with an albumin level of 1.2. Plan . 1. Consider radiation oncology consult 2. supportive care 3. Follow GI recommendation regarding cirrhosis. 4. Hematology recommendation regarding coagulopathy. 5. Diuresis as ordered. 6. Discussed with the patient's daughter. We will follow along with you. BRIELLE MABRY MD Nov 04, 2016 12:20
--- NOTE | 2016-11-04 16:33 | PDOC ---
Provider Note Provider Note 61 yo woman with history of st I(T2 N0 M0) adenocarcinoma of JIMMY s/p 50 Gy of hypofractionated radiation here completed 06/2014. Admitted with fatigue and diffuse leg swelling, fatigue, shortness of breath and cough. No chest pain or hemoptysis. Doing better with diuretic therapy CT chest 3.5 x 2.5 cm suprahilar mass, this was 2.0 x1.0 on follow up imaging 08/2016. ascites, nodular liver and modest left pleural effusion. PE Elderly appearing than true age. LQ abdominal fullness and diffuse LE edema. Lab Hb 10.0 wbc 4600, plat 65K Chem Cr 1.2 t bili 4.1 alb 1.2 Impression: Relapse of JIMMY st I adenocarcinoma s/p radiation 06/2014. Progressive liver impairment from alcohol cirrhosis with ascites, elevated bili and thrombocytopenia. If overall performance status and liver function can be stabilized, we could consider retreatment with localized radiation to her known adenocarcinoma of the lung. If liver failure remains ongoing then I would recommend observation of lung cancer recurrence and only retreat for symptomatic relapse. Discussed with patient and Dr Shannon. I would plan to see the patient 2 weeks following discharge to finalize our decision. ANJALI RENDON MD Nov 04, 2016 16:33
[2016-11-05 03:00] VITALS: BP_SYST 102; BP_SYST 128; BP_DIAS 52; BP_DIAS 68
--- NOTE | 2016-11-05 04:40 | CONS ---
DATE OF CONSULTATION: 11/04/2016 REFERRING PHYSICIAN: Dr. Ruiz Espinoza. DIAGNOSIS: Stage I (T2N0M0) adenocarcinoma of the left suprahilar left upper lobe region. She underwent biopsy here in May 2014. She received 50 Gy conformal hypofractionated primary radiation completed in June 2014. She now has asymptomatic disease progression seen on CT scan on admission from 11/03/2016. We were asked to see her regarding the role of additional radiation treatment. She was initially admitted here for symptoms associated with progressive liver failure, now is improved with aggressive diuretic therapy. HISTORY OF PRESENT ILLNESS: The patient is a 61-year-old woman who initially had stage I adenocarcinoma of the lung, diagnosed as summarized as above. Following treatment, she did well. She was last seen as an outpatient in August 2016, at which time the mass had shrunken from its initial 3.5 x 3.3 cm size down to 2.0 x 1.0 cm. She now notes a 3-week history of this progressive ankle edema extending to involve the entire leg bilaterally associated with fatigue and shortness of breath and 2 episodes of nausea and vomiting. She has a prior history of known alcohol sclerosis and apparently had resumed some level of drinking in the last several weeks. She currently quantifies this as only as little as 2 beers a day, however. CT scan of the chest from 11/03/2016 revealed a 3.5 x 2.5 cm left suprahilar mass associated with minimal pleural effusion and hilar adenopathy , some ascites, and nodular liver changes consistent with cirrhosis.Previously in August 2016 mass measured 2.0 x 1.0 cm and no ascites and no pleural effusion was seen on that imaging. Since admission, she has had aggressive diuretic therapy and has partial improvement of her symptoms, she notes she only smokes 1 cigarette a day. Notes a prior history of significant smoking in the past and drinks only 2 beers a day. PAST MEDICAL HISTORY: Remarkable for alcoholic cirrhosis with prior history of paracentesis for ascites in the past. Stage I adenocarcinoma of the lung as summarized above, history of hepatitis A, B and C, hypertension, hyperlipidemia, esophageal varices secondary to liver failure, which have banded in the past, depression, osteoarthritis, gout, hysterectomy, left ovarian cyst, left breast surgery for benign cyst in the past. SOCIAL HISTORY: She is , second time for 13 years, no children. 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 Previously enjoyed working on puzzles, taking care of her dogs and watching TV. 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 She smoked from age 11 to the current time for 50 years one half pack a day, now only smoking 2 or 1 cigarette a day. Previous use drank up to half of fifth of booze per day. FAMILY HISTORY: Unremarkable for malignancy. PHYSICAL EXAMINATION: GENERAL: Revealed a pleasant woman in no acute distress, articulate appropriate during the examination. HEENT: Unremarkable. She had no overt scleral icterus. LYMPH NODES: She had no palpable cervical or supraclavicular adenopathy. LUNGS: Clear to auscultation without wheezes or rhonchi. HEART: Regular, without murmur or gallop. ABDOMEN: Revealed fullness in the lower quadrant without abdominal tenderness. EXTREMITIES: Had diffuse edema. Compression wrappings were placed over the distal legs bilaterally. Baseline laboratory studies from 11/02/2016 Hemoglobin 10.4, white count 5700, platelet count 71,000. Chemistry panel remarkable for creatinine 1.2. Bilirubin of 4.1, AST 57 and ALT 28, alkaline phosphatase 125, and albumin 1.2. ASSESSMENT AND PLAN: In summary, my impression is that of stage I (T2N0M0) adenocarcinoma of the left upper lobe. She has had a previous response to treatment, which was durable for over 2 years. She now has asymptomatic disease progression at that site with no evidence of disease elsewhere and now associated with minimal left hilar adenopathy. She currently has improved following exacerbation of her underlying sclerosis related liver failure. She has chronic thrombocytopenia, elevated bilirubin, diminished albumin, all consistent with chronic liver impairment. In the event she can be stabilized from her liver impairment, we could address repeat treatment to her lung cancer. In event liver failure continues to be a major issue, we would observe her lung cancer without intervention and only consider repeat treatment in the event she has symptoms from disease progression. I discussed this in detail with the patient and I reviewed this with Dr. Ruiz Espinoza. To finalize our potential for retreatment we would anticipate seeing her following 2 weeks or so following discharge to finalize her decision regarding repeat treatment versus observation. Thank you for allowing us to participate in her evaluation. ANJALI RENDON MD DR: WENDY/kar JOB#: [id number] / [id number] AGUILA Craig MD, MICHAEL MD [facility] [place] DIVISIONShahzad
[2016-11-05 05:47] LABS: BASO % 1 % (0-3); EOS % 2 % (0-3); HEMATOCRIT 30.4 % (36.0-47.0); HEMOGLOBIN 9.9 g/dL (12.0-15.5); LYMPH # 1.7 x10^3/uL (1.0-4.8); LYMPH % 32 % (24-48); MEAN CORPUSCULAR HEMOGLOBIN 31 pg (25-35); MEAN CORPUSCULAR HGB CONC 33 g/dL (31-37); MEAN CORPUSCULAR VOLUME 94 fL (79-100); MONO % 14 % (0-9); NEUT % 52 % (31-73); PLATELET COUNT 68 x10^3/uL (140-400); RED BLOOD COUNT 3.22 x10^6/uL (3.50-5.40); RED CELL DISTRIBUTION WIDTH 17.4 % (11.5-14.5); WHITE BLOOD COUNT 5.4 x10^3/uL (4.0-11.0)
[2016-11-05 06:21] LABS: ALBUMIN 1.1 g/dL (3.4-5.0); ALBUMIN/GLOBULIN RATIO 0.2 (1.0-1.7); CALCIUM 8.1 mg/dL (8.5-10.1); CREATININE 1.1 mg/dL (0.6-1.0); GFR 60.9; MAGNESIUM 1.6 mg/dL (1.8-2.4); POTASSIUM 3.6 mmol/L (3.5-5.1); TOTAL PROTEIN 6.9 g/dL (6.4-8.2)
[2016-11-05 07:00] VITALS: BP 102/79
--- NOTE | 2016-11-05 07:13 | PDOC ---
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 11/05/16 0713: IM PROGRESS NOTES- Subjective Subjective doing okay, pain in bilateral feet Objective Objective no distress Vitals Vital Signs Date Time Temp Pulse Resp B/P Pulse Ox O2 Delivery O2 Flow Rate FiO2 11/05/16 03:00 98.2 71 18 102/52 95 Room Air 98.2 Input & Output Intake and Output 11/05/16 07:00 Intake Total 1950 ml Output Total 1250 ml Balance 700 ml Intake Oral 1850 ml IV Total 100 ml Output Urine Total 1250 ml # Bowel Movements 1 Physical Exam Physical Exam General appearance - alert, chronically ill appearing, and in no distress Mental Status - alert, oriented to person, place, and time, affect appropriate to mood Head - normal Chest - clear to auscultation, no wheezes, rales or rhonchi Heart - S1 and S2 normal Abdomen - soft, nontender, +ascites, BS+ Neurological - no acute focal neurological deficit noted Musculoskeletal - no muscular tenderness noted Extremities - no pedal edema Skin - warm and dry Labs Laboratory Tests Test 11/04/16 03:36 11/05/16 05:10 Sodium Level 138mmol/L (136-145) 138mmol/L (136-145) Potassium Level 3.6mmol/L (3.5-5.1) 3.6mmol/L (3.5-5.1) Chloride Level 106mmol/L (98-107) 104mmol/L (98-107) Carbon Dioxide Level 28mmol/L (21-32) 30mmol/L (21-32) Anion Gap 4 (6-14) 4 (6-14) Blood Urea Nitrogen 14mg/dL (7-20) 13mg/dL (7-20) Creatinine 1.1mg/dL (0.6-1.0) 1.1mg/dL (0.6-1.0) Estimated GFR (Cockcroft-Gault) 60.9 60.9 Glucose Level 99mg/dL (70-99) 71mg/dL (70-99) Calcium Level 8.1mg/dL (8.5-10.1) 8.1mg/dL (8.5-10.1) Magnesium Level 1.5mg/dL (1.8-2.4) 1.6mg/dL (1.8-2.4) White Blood Count 5.4x10^3/uL (4.0-11.0) Red Blood Count 3.22x10^6/uL (3.50-5.40) Hemoglobin 9.9g/dL (12.0-15.5) Hematocrit 30.4% (36.0-47.0) Mean Corpuscular Volume 94fL (79-100) Mean Corpuscular Hemoglobin 31pg (25-35) Mean Corpuscular Hemoglobin Concent 33g/dL (31-37) Red Cell Distribution Width 17.4% (11.5-14.5) Platelet Count 68x10^3/uL (140-400) Neutrophils (%) (Auto) 52% (31-73) Lymphocytes (%) (Auto) 32% (24-48) Monocytes (%) (Auto) 14% (0-9) Eosinophils (%) (Auto) 2% (0-3) Basophils (%) (Auto) 1% (0-3) Neutrophils # (Auto) 2.8x10^3uL (1.8-7.7) Lymphocytes # (Auto) 1.7x10^3/uL (1.0-4.8) Monocytes # (Auto) 0.7x10^3/uL (0.0-1.1) Eosinophils # (Auto) 0.1x10^3/uL (0.0-0.7) Basophils # (Auto) 0.0x10^3/uL (0.0-0.2) BUN/Creatinine Ratio 12 (6-20) Total Bilirubin 4.0mg/dL (0.2-1.0) Aspartate Amino Transf (AST/SGOT) 53U/L (15-37) Alanine Aminotransferase (ALT/SGPT) 28U/L (14-59) Alkaline Phosphatase 105U/L (46-116) Total Protein 6.9g/dL (6.4-8.2) Albumin 1.1g/dL (3.4-5.0) Albumin/Globulin Ratio 0.2 (1.0-1.7) Laboratory Tests Test 11/05/16 05:10 White Blood Count 5.4x10^3/uL (4.0-11.0) Red Blood Count 3.22x10^6/uL (3.50-5.40) Hemoglobin 9.9g/dL (12.0-15.5) Hematocrit 30.4% (36.0-47.0) Mean Corpuscular Volume 94fL (79-100) Mean Corpuscular Hemoglobin 31pg (25-35) Mean Corpuscular Hemoglobin Concent 33g/dL (31-37) Red Cell Distribution Width 17.4% (11.5-14.5) Platelet Count 68x10^3/uL (140-400) Neutrophils (%) (Auto) 52% (31-73) Lymphocytes (%) (Auto) 32% (24-48) Monocytes (%) (Auto) 14% (0-9) Eosinophils (%) (Auto) 2% (0-3) Basophils (%) (Auto) 1% (0-3) Neutrophils # (Auto) 2.8x10^3uL (1.8-7.7) Lymphocytes # (Auto) 1.7x10^3/uL (1.0-4.8) Monocytes # (Auto) 0.7x10^3/uL (0.0-1.1) Eosinophils # (Auto) 0.1x10^3/uL (0.0-0.7) Basophils # (Auto) 0.0x10^3/uL (0.0-0.2) Sodium Level 138mmol/L (136-145) Potassium Level 3.6mmol/L (3.5-5.1) Chloride Level 104mmol/L (98-107) Carbon Dioxide Level 30mmol/L (21-32) Anion Gap 4 (6-14) Blood Urea Nitrogen 13mg/dL (7-20) Creatinine 1.1mg/dL (0.6-1.0) Estimated GFR (Cockcroft-Gault) 60.9 BUN/Creatinine Ratio 12 (6-20) Glucose Level 71mg/dL (70-99) Calcium Level 8.1mg/dL (8.5-10.1) Magnesium Level 1.6mg/dL (1.8-2.4) Total Bilirubin 4.0mg/dL (0.2-1.0) Aspartate Amino Transf (AST/SGOT) 53U/L (15-37) Alanine Aminotransferase (ALT/SGPT) 28U/L (14-59) Alkaline Phosphatase 105U/L (46-116) Total Protein 6.9g/dL (6.4-8.2) Albumin 1.1g/dL (3.4-5.0) Albumin/Globulin Ratio 0.2 (1.0-1.7) Meds Current Medications Furosemide (Lasix) 20 mg 1X ONCE IVP Last administered on 11/04/16 11:22; Start 11/04/16 at 11:00; Stop 11/04/16 at 11:01; Status DC Magnesium Oxide 400 mg 400 mg BID PO Last administered on 11/04/16 20:42; Start 11/04/16 at 09:00 Magnesium Sulfate/ Dextrose (Magnesium Sulfate PREMIX 4GM) 100 ml @ 25 mls/hr 1X ONCE IV Last administered on 11/04/16 10:34; Start 11/04/16 at 10:00; Stop 11/04/16 at 13:59; Status DC Potassium Chloride (Klor-Con) 20 meq 1X ONCE PO Last administered on 10:07; Start 11/04/16 at 10:00; Stop 11/04/16 at 10:01; Status DC Assessment Assessment FINAL IMPRESSION: 1. Anasarca, acute on chronic liver failure. 2. Cirrhosis of the liver. 3. Alcoholic liver disease. 4. History of lung cancer. 5. Low albumin and low magnesium. 6. Relapse with smoking and drinking. IMPRESSION: anasarca secondary to cirrhosis liver daily weight not accurate Lasix 20mg IV Bid 2day I/O edema improved Additional lasix 20mg IV 11/04 Change Lasix to oral dose for DC cirrhosis liver secondary to ETOH INR 2.4 on admission Platelet Admit 71 11/05 68 hepatic cirrhosis +portal HTN abnormal CT chest 3cm soft tissue mass JIMMY with mild L hilar adenopathy, Stage I T2N0M0 with h/o XRT 2013. pulmonary consulted oncology radiologist consulted. F/U 2 weeks after discharge to discuss radiation treatment cholecystitis gallstone +GB wall thickening, not acute. monitor for symptoms anemia CD Admit Hgb 10.4 11/05 9.9 CKD II Admit BUN 12 11/05 13 Cr 1.2 1.1 K 4.5 3.6 Mg 1.6 1.6 OTC Mg replacement home meds start Mag Ox 400mg BID and recheck AM 11/05 Mg SO4 4gm IV 11/04 Increase Mg SO4 to 2 tab bid. Give IV Mg SO 4gm prior to discharge today. Begin KCL 20 meq Daily when discharged, Give dose today. DVT/GI prophylaxis tubigrip OOB chair/ambulate PPI For more details regarding further plans, please refer to the orders. She agrees to [facility]N PT OT in the home and she will make appt next Tuesday for f/u. Plan Plan For more details regarding further plans, please refer to the orders. LIBBY KINNEY MD 11/05/16 1105: IM PROGRESS NOTES- Assessment Assessment The patient was seen and examined by me. Chart reviewed and plan of care formulated. Discussed with, reviewed and agree with BUSINESS SERVICES SALES AGENT's notes, plan of care and orders with modifications as necessary. Discharge Management - 35 minutes. DAVID WISDOM APRN Nov 05, 2016 07:13 LIBBY KINNEY MD Nov 05, 2016 11:05
--- NOTE | 2016-11-05 07:15 | DISCH ---
DISCHARGE DISCHARGE DATE: Nov 05, 2016 FINAL DIAGNOSIS Problems Medical Problems: (1) Cirrhosis Status: Acute (2) Cirrhosis of liver Status: Acute CONDITION ON DISCHARGE: Stable HOME HEALTH: Yes (PT OT eval and treat. ) PT. HAS FUNCTIONAL LIMITATIONS: Yes FACE TO FACE ENCOUNTER: Yes POST DISCHARGE ORDERS ACTIVITY ORDERS: Activity as tolerated WEIGHT BEARING STATUS: As tolerated DIET AFTER DISCHARGE: Cardiac FOLLOW-UP PHYSICIAN FOLLOW-UP: F/U Dr. Swanson or Manjit Engel ADDITIONAL FOLLOW-UP: F/U Dr. Stanton 2 weeks after discharge DAVID WISDOM APRN Nov 05, 2016 07:15
[2016-11-05] MEDS ORDERED: POTA20TA4 PO (07:19)
[2016-11-05] MEDS ORDERED: MAGN400T22 PO (07:19)
[2016-11-05] MEDS ORDERED: FURO20TA3 PO (07:19)
[2016-11-05] MEDS ORDERED: MAGNESIUM SULFATE 4GM 100 ML IV ONE (08:00)
[2016-11-05] MEDS ORDERED: POTASSIUM CHLORIDE 20 MEQ TABLET.ER. PO SCH (08:00)
[2016-11-05] MEDS ORDERED: MAGNESIUM OXIDE 400 MG TABLET PO SCH (09:00)
[2016-11-05] MEDS ORDERED: FUROSEMIDE 20 MG TABLET PO SCH (09:00)
[2016-11-05] MEDS: RIFAXIMIN 550 MG TABLET PO SCH (09:10)
[2016-11-05] MEDS: SPIRONOLACTONE 25 MG TABLET PO SCH (09:11)
[2016-11-05] MEDS: LEVETIRACETAM 500 MG TABLET PO SCH (09:11)
[2016-11-05] MEDS: LACTULOSE 20 GM/30 ML SOLUTION. PO SCH (09:11)
[2016-11-05] MEDS: EZETIMIBE 10 MG TABLET PO SCH (09:11)
[2016-11-05] MEDS: PANTOPRAZOLE 40 MG TABLET. PO SCH (09:11)
[2016-11-05 11:51] VITALS: BP 95/56
--- NOTE | 2016-11-05 13:09 | PDOC ---
Provider Note Provider Note Feeling better overall. Anticipating going home soon. Notes less leg swelling. Impression: Cirrhotic liver failure, symptomatically improved with diuretic treatment. Stage I (T2 N0 M0) adenocarcinoma of JIMMY s/p previous radiation 06/2014 now with local progression. Will see in followup in 2 weeks to discuss ongoing observation vs retreatment. ANJALI RENDON MD Nov 05, 2016 13:09
--- NOTE | 2016-11-05 13:25 | PDOC ---
Subjective: Subjective: Swelling in feet improved, still a little sore. No GI complaints. Thinks she' s going home today. Objective: Vital Signs: Vital Signs Date Time Temp Pulse Resp B/P Pulse Ox O2 Delivery O2 Flow Rate FiO2 11/05/16 11:51 98.1 61 18 95/56 95 Room Air 98.1 Labs: Laboratory Tests Test 11/05/16 05:10 White Blood Count 5.4x10^3/uL Red Blood Count 3.22x10^6/uL Hemoglobin 9.9g/dL Hematocrit 30.4% Mean Corpuscular Volume 94fL Mean Corpuscular Hemoglobin 31pg Mean Corpuscular Hemoglobin Concent 33g/dL Red Cell Distribution Width 17.4% Platelet Count 68x10^3/uL Neutrophils (%) (Auto) 52% Lymphocytes (%) (Auto) 32% Monocytes (%) (Auto) 14% Eosinophils (%) (Auto) 2% Basophils (%) (Auto) 1% Neutrophils # (Auto) 2.8x10^3uL Lymphocytes # (Auto) 1.7x10^3/uL Monocytes # (Auto) 0.7x10^3/uL Eosinophils # (Auto) 0.1x10^3/uL Basophils # (Auto) 0.0x10^3/uL Sodium Level 138mmol/L Potassium Level 3.6mmol/L Chloride Level 104mmol/L Carbon Dioxide Level 30mmol/L Anion Gap 4 Blood Urea Nitrogen 13mg/dL Creatinine 1.1mg/dL Estimated GFR (Cockcroft-Gault) 60.9 BUN/Creatinine Ratio 12 Glucose Level 71mg/dL Calcium Level 8.1mg/dL Magnesium Level 1.6mg/dL Total Bilirubin 4.0mg/dL Aspartate Amino Transf (AST/SGOT) 53U/L Alanine Aminotransferase (ALT/SGPT) 28U/L Alkaline Phosphatase 105U/L Total Protein 6.9g/dL Albumin 1.1g/dL Albumin/Globulin Ratio 0.2 PE: GEN: NAD, sitting in chair eating lunch LUNGS: CTAB anteriorly HEART: RRR ABD: S/ND/NT EXTREMITY: less BLE edema NEURO/PSYCH: A & O 3 A/P: Alcoholic cirrhosis, ascites, portal hypertension -on Aldactone, Xifaxan, lactulose, Lasix BLE edema - improving Lung cancer -- Improved w/ diuresis. Dc rae ALVAREZ. DIANA SANCHEZ Nov 05, 2016 13:25
--- NOTE | 2016-11-05 13:34 | PDOC ---
PULMONARY PROGRESS NOTES Subjective no soa Vitals Vital Signs Date Time Temp Pulse Resp B/P Pulse Ox O2 Delivery O2 Flow Rate FiO2 11/05/16 11:51 98.1 61 18 95/56 95 Room Air 98.1 General: Alert, No acute distress Lungs: Clear Cardiovascular: S1 Abdomen: Soft, Non-tender Neuro Exam: Alert Extremities: Other (2+edema) Skin: Warm Labs Laboratory Tests Test 11/04/16 03:36 11/05/16 05:10 Sodium Level 138mmol/L (136-145) 138mmol/L (136-145) Potassium Level 3.6mmol/L (3.5-5.1) 3.6mmol/L (3.5-5.1) Chloride Level 106mmol/L (98-107) 104mmol/L (98-107) Carbon Dioxide Level 28mmol/L (21-32) 30mmol/L (21-32) Anion Gap 4 (6-14) 4 (6-14) Blood Urea Nitrogen 14mg/dL (7-20) 13mg/dL (7-20) Creatinine 1.1mg/dL (0.6-1.0) 1.1mg/dL (0.6-1.0) Estimated GFR (Cockcroft-Gault) 60.9 60.9 Glucose Level 99mg/dL (70-99) 71mg/dL (70-99) Calcium Level 8.1mg/dL (8.5-10.1) 8.1mg/dL (8.5-10.1) Magnesium Level 1.5mg/dL (1.8-2.4) 1.6mg/dL (1.8-2.4) White Blood Count 5.4x10^3/uL (4.0-11.0) Red Blood Count 3.22x10^6/uL (3.50-5.40) Hemoglobin 9.9g/dL (12.0-15.5) Hematocrit 30.4% (36.0-47.0) Mean Corpuscular Volume 94fL (79-100) Mean Corpuscular Hemoglobin 31pg (25-35) Mean Corpuscular Hemoglobin Concent 33g/dL (31-37) Red Cell Distribution Width 17.4% (11.5-14.5) Platelet Count 68x10^3/uL (140-400) Neutrophils (%) (Auto) 52% (31-73) Lymphocytes (%) (Auto) 32% (24-48) Monocytes (%) (Auto) 14% (0-9) Eosinophils (%) (Auto) 2% (0-3) Basophils (%) (Auto) 1% (0-3) Neutrophils # (Auto) 2.8x10^3uL (1.8-7.7) Lymphocytes # (Auto) 1.7x10^3/uL (1.0-4.8) Monocytes # (Auto) 0.7x10^3/uL (0.0-1.1) Eosinophils # (Auto) 0.1x10^3/uL (0.0-0.7) Basophils # (Auto) 0.0x10^3/uL (0.0-0.2) BUN/Creatinine Ratio 12 (6-20) Total Bilirubin 4.0mg/dL (0.2-1.0) Aspartate Amino Transf (AST/SGOT) 53U/L (15-37) Alanine Aminotransferase (ALT/SGPT) 28U/L (14-59) Alkaline Phosphatase 105U/L (46-116) Total Protein 6.9g/dL (6.4-8.2) Albumin 1.1g/dL (3.4-5.0) Albumin/Globulin Ratio 0.2 (1.0-1.7) Laboratory Tests Test 11/05/16 05:10 White Blood Count 5.4x10^3/uL (4.0-11.0) Red Blood Count 3.22x10^6/uL (3.50-5.40) Hemoglobin 9.9g/dL (12.0-15.5) Hematocrit 30.4% (36.0-47.0) Mean Corpuscular Volume 94fL (79-100) Mean Corpuscular Hemoglobin 31pg (25-35) Mean Corpuscular Hemoglobin Concent 33g/dL (31-37) Red Cell Distribution Width 17.4% (11.5-14.5) Platelet Count 68x10^3/uL (140-400) Neutrophils (%) (Auto) 52% (31-73) Lymphocytes (%) (Auto) 32% (24-48) Monocytes (%) (Auto) 14% (0-9) Eosinophils (%) (Auto) 2% (0-3) Basophils (%) (Auto) 1% (0-3) Neutrophils # (Auto) 2.8x10^3uL (1.8-7.7) Lymphocytes # (Auto) 1.7x10^3/uL (1.0-4.8) Monocytes # (Auto) 0.7x10^3/uL (0.0-1.1) Eosinophils # (Auto) 0.1x10^3/uL (0.0-0.7) Basophils # (Auto) 0.0x10^3/uL (0.0-0.2) Sodium Level 138mmol/L (136-145) Potassium Level 3.6mmol/L (3.5-5.1) Chloride Level 104mmol/L (98-107) Carbon Dioxide Level 30mmol/L (21-32) Anion Gap 4 (6-14) Blood Urea Nitrogen 13mg/dL (7-20) Creatinine 1.1mg/dL (0.6-1.0) Estimated GFR (Cockcroft-Gault) 60.9 BUN/Creatinine Ratio 12 (6-20) Glucose Level 71mg/dL (70-99) Calcium Level 8.1mg/dL (8.5-10.1) Magnesium Level 1.6mg/dL (1.8-2.4) Total Bilirubin 4.0mg/dL (0.2-1.0) Aspartate Amino Transf (AST/SGOT) 53U/L (15-37) Alanine Aminotransferase (ALT/SGPT) 28U/L (14-59) Alkaline Phosphatase 105U/L (46-116) Total Protein 6.9g/dL (6.4-8.2) Albumin 1.1g/dL (3.4-5.0) Albumin/Globulin Ratio 0.2 (1.0-1.7) Medications Active Scripts Medications Dose Route/Sig Days Date Category Augmentin 500-125 Tablet (Amoxicillin/Potassium Clav) 1 Each Tablet 1 Tab PO BID 11/02/16 Reported Aldactone (Spironolactone) 100 Mg Tablet 100 Mg PO DAILY 11/02/16 Reported Voltaren (Diclofenac Sodium) 100 Gm Gel..gram. 1 Gm TP QID 11/02/16 Reported Lactulose 20 Gm/30 Ml Solution 20 Gm PO TID 11/02/16 Reported Zetia (Ezetimibe) 10 Mg Tablet 10 Mg PO DAILY 11/02/16 Reported Levaquin (Levofloxacin) 500 Mg Tablet 500 Mg PO DAILY 11/02/16 Reported Meclizine Hcl 25 Mg Tablet 25 Mg PO PRN DAILY PRN 11/02/16 Reported Keppra (Levetiracetam) 500 Mg Tablet 500 Mg PO BID 11/02/16 Reported Xifaxan (Rifaximin) 550 Mg Tablet 550 Mg PO BID 11/02/16 Reported Caltrate 600 + D Tablet (Calcium Carbonate/Vitamin D3) 1 Each Tablet 1 Each PO BID 11/02/16 Reported Nu-Mag (Magnesium Chloride) 71.5 Mg Tablet. 128 Mg PO DAILY 11/02/16 Reported Prilosec Otc (Omeprazole Magnesium) 20 Mg Tablet. 20 Mg PO DAILY 11/02/16 Reported [place] 3 Fish Oil Softgel ([place]-3 Fatty Acids/Fish Oil) 1 Each Capsule. 1 Each PO DAILY 11/02/16 Reported Impression . 1. Known Left upper lobe mass. 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 . I was able to find old ct chest from 09/01 for comparison under ishaan and hood abrams .It has grown from 2.5 cm to 3.0 cm 2. History of tobaccoism, suspect underlying chronic obstructive pulmonary disease. 3. 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 4. 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 5. Severe protein-calorie malnutrition with an albumin level of 1.2. Plan . 1. Appreciate radiation oncology consult 2. clinically better 3. Follow GI recommendation regarding cirrhosis. 4. Hematology recommendation regarding coagulopathy. 5. Diuresis as ordered. 6. Discussed with the patient's daughter. 7. further radiation treatment down the road BRIELLE MABRY MD Nov 05, 2016 13:34
== END 2016-11-05 14:15 | disposition home health service (06) | DRG 432 ==
LOC: 5 NORTH 17:58
PROVIDERS: ADMIT Internal Medicine; ATTEND Internal Medicine
DX: K70.40 Alcoholic hepatic failure without coma (principal); E43 Unspecified severe protein-calorie malnutrition; C34.90 Malignant neoplasm of unspecified part of unspecified bronchus or lung; D68.4 Acquired coagulation factor deficiency; K80.10 Calculus of gallbladder with chronic cholecystitis without obstruction; K70.31 Alcoholic cirrhosis of liver with ascites; D64.9 Anemia, unspecified; D69.6 Thrombocytopenia, unspecified; Z68.24 Body mass index [BMI] 24.0-24.9, adult; E78.5 Hyperlipidemia, unspecified; E87.6 Hypokalemia; F32.9 Major depressive disorder, single episode, unspecified; I12.9 Hypertensive chronic kidney disease with stage 1 through stage 4 chronic kidney disease, or unspecified chronic kidney disease; J44.9 Chronic obstructive pulmonary disease, unspecified; K21.9 Gastro-esophageal reflux disease without esophagitis; M10.9 Gout, unspecified; M19.90 Unspecified osteoarthritis, unspecified site; N18.2 Chronic kidney disease, stage 2 (mild); Z85.118 Personal history of other malignant neoplasm of bronchus and lung; Z86.73 Personal history of transient ischemic attack (TIA), and cerebral infarction without residual deficits; Z87.891 Personal history of nicotine dependence; Z92.3 Personal history of irradiation; Z90.710 Acquired absence of both cervix and uterus; E83.42 Hypomagnesemia
CPT/HCPCS: 36415; 71010; 71250; 76700; 80048; 80053; 81001; 82140; 83735; 84443; 85027; 85610; 93005; 93970; 99406; J1940; J3475; J7060; 97116; 97530; 97535